=== PATIENT | male | born 1935 | race Caucasian/White ===

== ENCOUNTER 2018-12-01 06:06 | Day surgery (SDC) | payer MEDICARE ==
[~2018-12-01] VITALS: Ht 154.9 cm; Wt 114.0 kg
[~2018-12-01 06:06] MED LIST: (None)20 M1 PO; AMLO10 PO; AMOCLA875 PO; AMOX1XR PO; ASPI81EC PO; ATEN25 PO; BENA10 PO; BENA20 PO; Bupropion Xl150 MG PO; DARIFENACIN ER15 MG PO; DOXA4 PO; ERGO400 PO; Enablex15 MG PO; FURO20 PO; HYDCHL12.5 PO; HYDCHL25 PO; L-THYROXINE PO; LEVSOD75 PO; LORA10ER PO; MULVITMINF PO; Norco 5-325 Ta1 EACH PO; OXYACE5T PO; OXYB5ER PO; POTA10T; PRAV40 PO; RXOXYACE PO; SPIHYD PO; VERA240ERB PO; Zithromax250 MG PO
[2018-12-01] MEDS ORDERED: HYDCHL25 PO (13:23)
[2018-12-01] MEDS ORDERED: POTCHL20ER PO (13:23)
[2018-12-01] MEDS ORDERED: Toprol Xl25 MG PO (13:23)
[2018-12-01] MEDS ORDERED: ESCI10 PO (13:24)
--- NOTE | 2018-12-01 18:41 | NUR ---
END OF SHIFT; PT ARRIVED FROM [facility]ART [facility]ENTER AT 1330 TODAY. HE HAD BEEN RECOVERED IN THE HEART CENTER WHILE WAITING FOR ROOM IN PCU. TR BAND WAS DEFLATED AND PT HAD ARMBOARD IN PLACE. NO BLEEDING NOTED FROM TR BAND SITE. BAND WAS REMOVED AND OPSITE PLACED OVER WRIST. PT DENIES ANY PAIN OR DISCOOMFORT. PER REPORT PATIENT HAD A STENT TO RCA AND IN THE FIRST DIAG OFF THE LAD 2ND STENT. HE TRANSFERS TO THE BED WITHOUT DIFF USING CANE. HE IS AO X 4 AND HAS PLEASANT AFFECT. CONTINUES TO REMAIN PAIN FREE THROUGHOUT DAY. PER HE IS AN OBS PATIENT. WILL CONTINUE TO MONITOR THIS PATIENT UNTIL REPORT AND HAND OFF TO NOC SHIFT RN.
[2018-12-02 04:34] LABS: Anion Gap 7 mmol/L (6-16); Blood Urea Nitrogen 14 mg/dL (8-24); Bun/Creatinine Ratio 17.5 (12.0-20.0); CO2, Blood 28 mmol/L (21-32); Calcium, Blood 8.6 mg/dL (8.5-10.1); Chloride, Blood 104 mmol/L (98-108); Cholesterol 187 mg/dL (50-200); Glomerular Filtration Rate >60 (60-); Glucose, Blood 106 mg/dL (70-99); Potassium, Blood 3.9 mmol/L (3.5-5.5); Sodium, Blood 139 mmol/L (136-145); Triglycerides 272 mg/dL (30-160)
--- NOTE | 2018-12-02 04:53 | NUR ---
SHIFT SUMMARY PT A&O X4. VSS. R RADIAL ACCESS SITE WNL, NO BLEEDINING, NO HEMATOMA. ARM IMMOBILIZER IN PLACE TO R ARM. MONITOR SHOWS SB/NSR, HR 50-70. SPO2 > 92% ON CPAP WHILE SLEEPING T/O SHIFT, OTHERWISE SPO2 > 92% ON RA WHILE AWAKE. PT SBA W/ CANE INTO BATHROOM. PT ANTICIPATING DISCHARGE HOME IN MORNING. WILL CONTINUE TO MONITOR AND PROVIDE CARE UNTIL REPORT OFF TO DAY SHIFT RN.
--- NOTE | 2018-12-02 08:45 | NUR ---
PT PLEASANT COOP A/O. HOPING TO GO HOME [place]. DENIES PAIN, DENIES CHEST PAIN OR PRESSURE, RT RADIAL SITE LIGHT REDNESS, CDI. NO BLEEDING NOTED. NO HEMATOMA OR SWELLING NOTED. ARM BOARD IN PLACE. H/R REG, NO MURMER NOTED. PER TELE: NSR AT 67. LUNGS CLEAR, RESP EASY, UNLABORED. ON R/A. BT X4 LAST BM YEST. VOIDS PER URINAL. SBA WITH CANE 4 PRONG. BED IN LOW POSITION, CALL LITE IN REACH, CALLS APPROP
[2018-12-02] MEDS ORDERED: CLOP75 PO (10:26)
[2018-12-02] MEDS ORDERED: ATORVASTATIN CA80 MG PO (10:26)
[2018-12-02] MEDS ORDERED: ASPI81CH PO (10:27)
--- NOTE | 2018-12-02 11:00 | NUR ---
DISCHARGE REVIEWED WITH PT. REVIEWED MEDS, APPOINTMENTS, FOLLOWUP AND INSTRUCTIONS. PT VERBALIZED UNDERSTANDING. TLE REMOVED. PT TO DRESS. MEDS CALLED IN TO PHARMACY .
--- NOTE | 2018-12-02 11:37 | NUR ---
IV PULLED INTACT. FAMILY ON WAY TO TAKE PT HOME.
--- NOTE | 2018-12-02 12:06 | NUR ---
1145, FAMILY HERE, WHEELED TO DOOR BY JERRY ORLANDO
== END 2018-12-02 11:45 | disposition home or self-care (01) ==
LOC: MHTC 06:06 → PCU 13:21 → MHTC 12-02 11:45
PROVIDERS: Internal Medicine Interventional Cardiology
PROC: 027035Z Dilation of Coronary Artery, One Artery with Two Drug-eluting Intraluminal Devices, Percutaneous Approach (ICD-10-PCS; principal; 2018-12-01)
PROC: B2111ZZ Fluoroscopy of Multiple Coronary Arteries using Low Osmolar Contrast (ICD-10-PCS; principal; 2018-12-01)
DX: I25.119 Atherosclerotic heart disease of native coronary artery with unspecified angina pectoris (principal); E66.9 Obesity, unspecified; I42.9 Cardiomyopathy, unspecified; I10 Essential (primary) hypertension; G47.33 Obstructive sleep apnea (adult) (pediatric); Z86.13 Personal history of malaria; M19.90 Unspecified osteoarthritis, unspecified site; Z90.49 Acquired absence of other specified parts of digestive tract; Z96.652 Presence of left artificial knee joint; Z89.611 Acquired absence of right leg above knee; Z79.899 Other long term (current) drug therapy; Z88.6 Allergy status to analgesic agent; Z68.42 Body mass index [BMI] 45.0-49.9, adult
CPT/HCPCS: 36415; 80048; 82465; 83036; 84478; 93454; 94762; 99152; 99153; C1725; C1769; C1874; C1887; C1894; C9600; J1644; J2250; J3010; J3246; J7030; Q9967

== ENCOUNTER → 2019-11-21 | Outpatient (CLI) | payer MEDICARE ==
[~2019-11-21] MED LIST changes: +ASPI81CH PO; +ATORVASTATIN CA80 MG PO; +CLOP75 PO; +ESCI10 PO; +POTCHL20ER PO; +Toprol Xl25 MG PO
[2019-11-21 15:50] LABS: Creatinine, Urine Random 65.2 mg/dL (27.00-270.00)
[2019-11-21 15:53] LABS: Microalb/Creat Ratio UR, Rand 34.049 mg/g (0.000-30.000); Microalbumin, Random Urine 22.2 mg/L (0.000-20.000)
== END | disposition home or self-care (01) ==
LOC: LAB SHORT 09:30 → LAB 09:30 → LAB FUT 05-21 14:30
PROVIDERS: Family Medicine
DX: I10 Essential (primary) hypertension (principal); E78.1 Pure hyperglyceridemia; E11.9 Type 2 diabetes mellitus without complications; E03.9 Hypothyroidism, unspecified
CPT/HCPCS: 82043; 82570

== ENCOUNTER → 2020-09-15 | Outpatient (CLI) | payer OTHER ==
[2020-09-15 13:36] LABS: BASOPHILS ABSOLUTE AUTO 0.03 K/mm3 (0.00-0.23); BASOPHILS PERCENT AUTO 0 % (0-2); EOSINOPHILS ABSOLUTE AUTO 0.29 K/mm3 (0.00-0.68); EOSINOPHILS PERCENT AUTO 3 % (0-6); Hematocrit 39.8 % (37.0-53.0); Hemoglobin 13.3 g/dL (13.5-17.5); IMMATURE GRAN ABSOLUTE AUTO 0.03 K/mm3 (0.00-0.10); IMMATURE GRAN PERCENT AUTO 0 % (0-1); LYMPHOCYTES ABSOLUTE AUTO 1.66 K/mm3 (0.84-5.20); LYMPHOCYTES PERCENT AUTO 18 % (21-46); MONOCYTES ABSOLUTE AUTO 0.74 K/mm3 (0.16-1.47); MONOCYTES PERCENT AUTO 8 % (4-13); Mean Corpuscular HGB 31.9 pg (26.0-34.0); Mean Corpuscular HGB Conc 33.4 g/dL (31.5-36.5); Mean Corpuscular Volume 95 fL (80-100); Mean Platelet Volume 9.4 fL (9.1-12.4); NEUTROPHILS ABSOLUTE AUTO 6.26 K/mm3 (1.96-9.15); NEUTROPHILS PERCENT AUTO 70 % (41-73); Platelet Count 251 K/mm3 (150-400); RDW Coefficient Variation 14.2 % (11.7-14.2); RDW Standard Deviation 49.8 fL (35.1-46.3); Red Blood Cell Count 4.17 M/mm3 (4.30-5.90); White Blood Cell Count 9.01 K/mm3 (4.00-11.30)
[2020-09-15 14:50] LABS: Prothrombin Time Results 10.8 Sec (9.7-11.5)
== END | disposition home or self-care (01) ==
LOC: LAB SHORT 13:30 → LAB 13:30
PROVIDERS: Family Medicine
DX: R04.0 Epistaxis (principal)
CPT/HCPCS: 85025; 85610; 85730

== ENCOUNTER 2020-12-09 14:58 | Emergency (ER) | payer OTHER ==
[~2020-12-09] VITALS: Ht 157.5 cm; Wt 108.0 kg
== END 2020-12-09 19:14 | disposition home or self-care (01) ==
LOC: ER 14:58
DX: S83.92XA Sprain of unspecified site of left knee, initial encounter (principal); S20.212A Contusion of left front wall of thorax, initial encounter; S70.02XA Contusion of left hip, initial encounter; I10 Essential (primary) hypertension; Z79.82 Long term (current) use of aspirin; Z79.899 Other long term (current) drug therapy; W10.9XXA Fall (on) (from) unspecified stairs and steps, initial encounter
CPT/HCPCS: 71101; 73502; 73562-LT; 96372; 99283-25; J1885

== ENCOUNTER 2021-07-15 10:41 | Observation (INO) | payer MEDICARE ==
[~2021-07-15] VITALS: Ht 157.5 cm; Wt 108.0 kg
[~2021-07-15 10:41] MED LIST changes: -ERGO400 PO; -POTA10T; +POTA10T PO; +THERA-D2000 UNIT PO
[2021-07-15 11:06] LABS: BASOPHILS ABSOLUTE AUTO 0.03 K/mm3 (0.00-0.23); BASOPHILS PERCENT AUTO 0 % (0-2); EOSINOPHILS ABSOLUTE AUTO 0.15 K/mm3 (0.00-0.68); EOSINOPHILS PERCENT AUTO 1 % (0-6); Hematocrit 40.4 % (37.0-53.0); Hemoglobin 13.5 g/dL (13.5-17.5); IMMATURE GRAN ABSOLUTE AUTO 0.05 K/mm3 (0.00-0.10); IMMATURE GRAN PERCENT AUTO 1 % (0-1); LYMPHOCYTES ABSOLUTE AUTO 2.08 K/mm3 (0.84-5.20); LYMPHOCYTES PERCENT AUTO 20 % (21-46); MONOCYTES ABSOLUTE AUTO 0.76 K/mm3 (0.16-1.47); MONOCYTES PERCENT AUTO 7 % (4-13); Mean Corpuscular HGB 32.9 pg (26.0-34.0); Mean Corpuscular HGB Conc 33.4 g/dL (31.5-36.5); Mean Corpuscular Volume 99 fL (80-100); Mean Platelet Volume 9.7 fL (9.1-12.4); NEUTROPHILS ABSOLUTE AUTO 7.46 K/mm3 (1.96-9.15); NEUTROPHILS PERCENT AUTO 71 % (41-73); Platelet Count 225 K/mm3 (150-400); RDW Coefficient Variation 13.6 % (11.7-14.2); RDW Standard Deviation 49.2 fL (35.1-46.3); White Blood Cell Count 10.53 K/mm3 (4.00-11.30)
[2021-07-15 11:26] LABS: Alanine Aminotransfer (ALT/SGP 86 U/L (12-78); Albumin, Blood 3.3 g/dL (3.4-5.0); Albumin/Globulin Ratio 0.8 (0.8-1.8); Alk Phos 155 U/L (50-136); Anion Gap 7 mmol/L (6-16); Aspartate Aminotrans (AST/SGOT 67 U/L (12-37); Blood Urea Nitrogen 29 mg/dL (8-24); Bun/Creatinine Ratio 32.2 (12.0-20.0); CO2, Blood 28 mmol/L (21-32); Calcium, Blood 9.1 mg/dL (8.5-10.1); Chloride, Blood 105 mmol/L (98-108); Globulin, Blood 3.9 g/dL (2.2-4.0); Glomerular Filtration Rate >60 (60-); Glucose, Blood 136 mg/dL (70-99); Potassium, Blood 3.2 mmol/L (3.5-5.5); Sodium, Blood 140 mmol/L (136-145); Total Protein, Blood 7.2 g/dL (6.4-8.2)
--- NOTE | 2021-07-15 17:00 | NUR ---
PT ADMITTED TO ROOM 363 FROM ED AND SETTLED IN TO ROOM AND ORIENTED TO CALL BUTTON.
--- NOTE | 2021-07-15 19:22 | NUR ---
SHIFT SUMMARY PT TO HAVE RESTING PORTION OF STRESS TEST TOMORROW AT 0930. BREAKFAST TO BE HELD AND GIVEN AFTER INJECTION. REPORTED TO NOC SHIFT. PT SITTING UP ON SIDE OF BED EATING SUPPER. AWARE OF PLANS AND RESTRICTIONS FOR TOMORROW. HAS HAD NO CHEST PAIN SINCE ARRIVAL.
[2021-07-15] MEDS ORDERED: HYDCHL25 PO (19:47)
[2021-07-15] MEDS ORDERED: POTCHL20ER PO (19:48)
[2021-07-15] MEDS ORDERED: AZELASTINE205.5 MCG1 (19:49)
[2021-07-15] MEDS ORDERED: BUPR150ER PO (19:50)
[2021-07-15] MEDS ORDERED: LEVSOD75 PO (19:50)
[2021-07-15] MEDS ORDERED: ASPI325EC PO (19:55)
[2021-07-15] MEDS ORDERED: CLOP75 PO (19:57)
[2021-07-15] MEDS ORDERED: Cyclobenzaprine5 MG PO (19:57)
[2021-07-15] MEDS ORDERED: FEROSUL325 M1 PO (19:58)
[2021-07-15] MEDS ORDERED: DOCU100 PO (20:04)
[2021-07-15] MEDS ORDERED: MYRBETRIQ25 MG PO (20:06)
[2021-07-15] MEDS ORDERED: IPRATROPIUM BRO15 ML (20:06)
[2021-07-15] MEDS ORDERED: METF500 PO (20:06)
[2021-07-15] MEDS ORDERED: ASCO500 PO (20:07)
--- NOTE | 2021-07-16 04:19 | NUR ---
SHIFT SUMMARY PATIENT ALERT AND ORIENTED PLEASANT C/O CONSTIPATION AND REQUESTED PRUNE JUICE WORKS WELL WITH HIM PRUNE JUICE GIVEN RESULTS PENDING ABD SOFT WITH HYPO BOWEL SOUNDS LOWER QUADS PO FLUIDS ENCOURAGE.NO CAFFEINE FROM LAST NIGHT 8PM PT GOING FOR STRESS TEST THIS MORNING.STANDBY ASSIST X1 WITH TRANSFERS TO THE BATHROOM.HOME CPAP ON WHOLE NIGHT TELE RUNNING SINUS RHYTHM HR 60
[2021-07-16 09:15] LABS: Albumin, Blood 3.1 g/dL (3.4-5.0); Anion Gap 4 mmol/L (6-16); Blood Urea Nitrogen 24 mg/dL (8-24); Bun/Creatinine Ratio 27.1 (12.0-20.0); CO2, Blood 29 mmol/L (21-32); Calcium, Blood 8.3 mg/dL (8.5-10.1); Chloride, Blood 106 mmol/L (98-108); Creatinine, Blood 0.89 mg/dL (0.60-1.20); Glomerular Filtration Rate >60 (60-); Glucose, Blood 121 mg/dL (70-99); Potassium, Blood 3.4 mmol/L (3.5-5.5); Sodium, Blood 139 mmol/L (136-145)
--- NOTE | 2021-07-16 15:00 | NUR ---
PT WITH CARDIOLOGY CONSULT THAT WAS CALLED IN TO OFFICE TODAY WITH DR. CADE COMING TO SEE PT SHORTLY AFTER CALL. PLANS FOR ANGIOGRAM WAS AFTER LUNCH. HEART CENTER HERE TO PICK PT UP APPROX. 1435 BY W/CMarilee CATHERINE COMPLETED BY HEART CENTER STAFF. REPORT CALLED TO LIZ CALLOWAY IN PCU FOR PT TRANSFER TO PCU3. WILL NOTIFY OF ANA.
--- NOTE | 2021-07-16 15:25 | NUR ---
RAPID BEDSIDE COVID TEST PERFORMED. LOT # [id number]. EXP DATE 11/10/21. RESULT: NEGATIVE.
--- NOTE | 2021-07-16 18:04 | NUR ---
ARRIVED AT ON THE MEDICAL UNIT AT 7AM. PT LOOKS COMFORTABLE SITTING UP IN BED WATHCING TV. PT ALERT AND ORIENTED X4. APPEARS WELL NORISHED, WELL GROOMED, AND APPROPRIATE AGE AND GENDER. APPROPRIATE AFFECT, PLEASENT MOOD, TELLING JOKES. PT DENIES ANY PAIN OR DISCOMFORT. BREAKFAST FOOD TRAY WAS HELD UNTIL AFTER NUCLEAR MEDICINE CAME AND ADMINISTERED DYE VIA HIS IV AT 9:30 AM FOR A REST TEST SCHEDULED AT 10:30 AM. HE WAS NOT INTERESTED IN MOST OF THE FOOD ON HIS BREAKFAST TRAY BUT MANAGED TO EAT A SANDWHICH AND JUICE. HE WAS PLACED ON NPO AND SCHEDUALED FOR ANGIOGRAPH. THE PTS RT RADIAL ARTERY WAS THE SITE OF INSERTION, SITE CLEAN DRY AND INTACT NO HEMATOMA. THERE WERE NO IMMEDIATE INDICATIONS FOR FURTHER INVESTIGATION OR TREATMENT AT THE TIME OF THE TEST. PATIENT WAS TRANSFERED TO THE PCU. VITALS STABLE.
--- NOTE | 2021-07-16 18:36 | NUR ---
ARRIVAL TO UNIT PT TRANSFERED FROM MEDICAL FLOOR POST ANGIO AT 1623. TR BAND IN PLACE. VSS SINCE ARRIVAL TO UNIT WITH O2 SATS >93% ON RA. RIGHT RADIAL SITE C/D/I AND NO SWELLING NOTED. NO REPORT OF CHEST PAIN/PRESSURE SINCE ARRIVAL TO UNIT. NO DYSPNEA/SOB REPORTED SINCE ARRIVAL TO UNIT. BED IN LOWEST POSITION,M CALL LIGHT WITHIN REACH.
--- NOTE | 2021-07-17 06:16 | NUR ---
SHIFT SUMMARY No acute events overnight. Home CPAP in place while sleeping. Cardiac rhythm Sinus Rhythm/Sinus Bradycardia. Rate drops into low 50s while sleeping. TR band successfully removed from right radial site with no complications. Education provdied on limitations for use of wrist over the next 48 hours: 1) no heavy lifting, pushing or pulling with that extremity, 2) may shower, avoid submerging in water, 3) may remove dressing after 24 hours, 4) apply bandaid for 12 hours if any noted oozing at site after removal of dressing. Additional instructions to be provided at discharge.
--- NOTE | 2021-07-17 12:56 | NUR ---
Per chart review with Dr. Bass, patient appropriate for discharge home. I went to visit the patient in his [facility] inpatient room. He was sitting up just finishing lunch, alert and pleasant. Patient states he lives with his , who helps with ADLs and transportation if needed. Although, the patient is mostly independent. He states he does have a walker and cane in his home. No needs anticipated upon discharge, patient feels safe to return home. I scheduled a hospital follow-up with Jay Cintron on Wednesday, July 21, 2021 at 04:20 PM. Discuss the importance of attending this appointment. Patient in agreement with discharge plan, denies barriers to return home. Patient's to be contacted by [facility] 03 nurse to discuss discharge instructions and transportation time.
[2021-07-17] MEDS ORDERED: MIRALAX1711 PO (14:16)
--- NOTE | 2021-07-17 15:12 | NUR ---
DISCHARGE UPDATE PT DISCHARGE PACKET GONE OVER WITH PT AND PT AT 1455. PT LEFT UNIT AT 1510 VIA WHEELCHAIR AND ON RA. PT PERSONAL CPAP MACHINE IN IT'S CARRYING CASE AND WITH DURING DISCHARGE. PT PERSONAL BELONGINGS IN BAG AND WITH PT DURING DISCHARGE. PT ABLE TO TRANSFER SELF TO AND FROM WHEELCHAIR.
== END 2021-07-17 14:30 | disposition home or self-care (01) ==
LOC: ER 10:41 → MEDS 10:42 → PCU 07-16 15:37
PROVIDERS: Emergency Medicine; ADMIT Family Medicine
DX: I25.10 Atherosclerotic heart disease of native coronary artery without angina pectoris (principal); I11.0 Hypertensive heart disease with heart failure; I50.30 Unspecified diastolic (congestive) heart failure; E11.9 Type 2 diabetes mellitus without complications; E78.5 Hyperlipidemia, unspecified; E87.6 Hypokalemia; Z95.5 Presence of coronary angioplasty implant and graft
CPT/HCPCS: 36415; 71045; 76937; 78452; 80053; 80069; 84484; 85025; 93005; 93010; 93017; 93306; 93454; 94762; 99152; 99153; 99285-25; A9270; A9500; C1769; C1887; C1894; J0280; J1644; J1650; J2250; J2785; J3010; J7030; J7050; Q9967

== ENCOUNTER → 2022-01-29 | Outpatient (CLI) | payer MEDICARE ==
[~2022-01-29] MED LIST changes: +ASCO500 PO; +ASPI325EC PO; +AZELASTINE205.5 MCG1; +BUPR150ER PO; +Cyclobenzaprine5 MG PO; +DOCU100 PO; +FEROSUL325 M1 PO; +IPRATROPIUM BRO15 ML; +METF500 PO; +MIRALAX1711 PO; +MYRBETRIQ25 MG PO
[2022-01-29 19:04] LABS: BASOPHILS ABSOLUTE AUTO 0.03 K/mm3 (0.00-0.23); BASOPHILS PERCENT AUTO 0 % (0-2); EOSINOPHILS ABSOLUTE AUTO 0.31 K/mm3 (0.00-0.68); EOSINOPHILS PERCENT AUTO 4 % (0-6); Hematocrit 38.1 % (37.0-53.0); Hemoglobin 13.1 g/dL (13.5-17.5); IMMATURE GRAN ABSOLUTE AUTO 0.02 K/mm3 (0.00-0.10); IMMATURE GRAN PERCENT AUTO 0 % (0-1); LYMPHOCYTES ABSOLUTE AUTO 1.99 K/mm3 (0.84-5.20); LYMPHOCYTES PERCENT AUTO 25 % (21-46); MONOCYTES ABSOLUTE AUTO 0.82 K/mm3 (0.16-1.47); MONOCYTES PERCENT AUTO 11 % (4-13); Mean Corpuscular HGB 34.5 pg (26.0-34.0); Mean Corpuscular HGB Conc 34.4 g/dL (31.5-36.5); Mean Corpuscular Volume 100 fL (80-100); Mean Platelet Volume 9.5 fL (9.1-12.4); NEUTROPHILS ABSOLUTE AUTO 4.67 K/mm3 (1.96-9.15); NEUTROPHILS PERCENT AUTO 59 % (41-73); Platelet Count 209 K/mm3 (150-400); RDW Coefficient Variation 13.9 % (11.7-14.2); RDW Standard Deviation 51.8 fL (35.1-46.3); White Blood Cell Count 7.84 K/mm3 (4.00-11.30)
[2022-01-29 19:37] LABS: Albumin, Blood 3.3 g/dL (3.4-5.0); Bilirubin, Total 0.7 mg/dL (0.1-1.0); Bun/Creatinine Ratio 28.4 (12.0-20.0); Calcium, Blood 8.8 mg/dL (8.5-10.1); Creatinine, Blood 0.99 mg/dL (0.60-1.20); Globulin, Blood 3.3 g/dL (2.2-4.0); Potassium, Blood 4.1 mmol/L (3.5-5.5); Total Protein, Blood 6.6 g/dL (6.4-8.2)
== END | disposition home or self-care (01) ==
LOC: LAB SHORT 18:57 → LAB 18:57
PROVIDERS: Physician Assistant
DX: R26.9 Unspecified abnormalities of gait and mobility (principal)
CPT/HCPCS: 80053; 85025

== ENCOUNTER 2023-12-05 20:24 | Emergency (ER) | payer MEDICARE ==
[~2023-12-05] VITALS: Ht 157.5 cm; Wt 104.3 kg
[2023-12-05 20:37] VITALS: BP 141/75
== END 2023-12-05 22:41 | disposition home or self-care (01) ==
LOC: ER 20:24
DX: S61.412A Laceration without foreign body of left hand, initial encounter (principal); S61.411A Laceration without foreign body of right hand, initial encounter; M51.36 Other intervertebral disc degeneration, lumbar region; M47.816 Spondylosis without myelopathy or radiculopathy, lumbar region; M41.86 Other forms of scoliosis, lumbar region; W18.30XA Fall on same level, unspecified, initial encounter; I10 Essential (primary) hypertension; Z79.84 Long term (current) use of oral hypoglycemic drugs; Z79.82 Long term (current) use of aspirin; Z79.02 Long term (current) use of antithrombotics/antiplatelets; Z79.899 Other long term (current) drug therapy
CPT/HCPCS: 72070; 72100; 99284-25

== ENCOUNTER 2025-05-15 17:44 | Emergency (ER) | payer OTHER, MEDICARE ==
[~2025-05-15] VITALS: Ht 175.3 cm; Wt 99.8 kg
[2025-05-15 18:14] LABS: BASOPHILS ABSOLUTE AUTO 0.03 K/mm3 (0.00-0.23); BASOPHILS PERCENT AUTO 0 % (0-2); EOSINOPHILS ABSOLUTE AUTO 0.28 K/mm3 (0.00-0.68); EOSINOPHILS PERCENT AUTO 3 % (0-6); Hematocrit 39.2 % (37.0-53.0); Hemoglobin 13.3 g/dL (13.5-17.5); IMMATURE GRAN ABSOLUTE AUTO 0.06 K/mm3 (0.00-0.10); IMMATURE GRAN PERCENT AUTO 1 % (0-1); LYMPHOCYTES ABSOLUTE AUTO 3.85 K/mm3 (0.84-5.20); LYMPHOCYTES PERCENT AUTO 35 % (21-46); MONOCYTES ABSOLUTE AUTO 0.79 K/mm3 (0.16-1.47); MONOCYTES PERCENT AUTO 7 % (4-13); Mean Corpuscular HGB Conc 33.9 g/dL (31.5-36.5); Mean Corpuscular Volume 99 fL (80-100); NEUTROPHILS ABSOLUTE AUTO 5.95 K/mm3 (1.96-9.15); NEUTROPHILS PERCENT AUTO 54 % (41-73); NRBC ABSOLUTE 0.00 K/mm3 (0.00-0.02); NRBC Auto 0.0 /100 WBC (0.0-0.2); Platelet Count 241 K/mm3 (150-400); RDW Coefficient Variation 13.1 % (11.7-14.2); RDW Standard Deviation 48.1 fL (35.1-46.3)
[2025-05-15 18:30] LABS: Prothrombin Time Results 11.2 Sec (9.7-11.5)
[2025-05-15 18:54] LABS: Alanine Aminotransfer (ALT/SGP 80 U/L (12-78); Albumin, Blood 3.4 g/dL (3.4-5.0); Albumin/Globulin Ratio 1.0 (0.8-1.8); Anion Gap 12 mmol/L (3-11); Aspartate Aminotrans (AST/SGOT 95 U/L (12-37); Bilirubin, Total 1.0 mg/dL (0.1-1.0); Blood Urea Nitrogen 23 mg/dL (8-24); CO2, Blood 29 mmol/L (21-32); Calcium, Blood 8.8 mg/dL (8.5-10.1); Chloride, Blood 102 mmol/L (98-108); Creatinine, Blood 0.93 mg/dL (0.60-1.20); Ethanol (Alcohol), Blood, Med <3 mg/dL; Globulin, Blood 3.4 g/dL (2.2-4.0); Glucose, Blood 186 mg/dL (70-99); Potassium, Blood 3.6 mmol/L (3.5-5.5); Sodium, Blood 139 mmol/L (136-145); Total Protein, Blood 6.8 g/dL (6.4-8.2)
[2025-05-15 18:56] VITALS: BP 128/70
[2025-05-15] MEDS ORDERED: HYDROCODONE-AC1 EA10 PO (20:01)
[2025-05-15] MEDS ORDERED: RX Prepack 6 Tabs Oxycodone 5mg UD ONE (20:25)
[2025-05-15] MEDS ORDERED: Morphine Sulfate 4 MG/1 ML Injection IV ONE (20:25)
== END 2025-05-15 21:38 | disposition home or self-care (01) ==
LOC: ER 17:44
PROVIDERS: Emergency Medicine
DX: S22.43XA Multiple fractures of ribs, bilateral, initial encounter for closed fracture (principal); S61.411A Laceration without foreign body of right hand, initial encounter; M25.552 Pain in left hip; I10 Essential (primary) hypertension; N40.0 Benign prostatic hyperplasia without lower urinary tract symptoms; Z96.653 Presence of artificial knee joint, bilateral; Z79.890 Hormone replacement therapy; Z79.82 Long term (current) use of aspirin; Z79.02 Long term (current) use of antithrombotics/antiplatelets; Z79.84 Long term (current) use of oral hypoglycemic drugs; Z79.899 Other long term (current) drug therapy; V43.52XA Car driver injured in collision with other type car in traffic accident, initial encounter
CPT/HCPCS: 36415; 70450; 71260; 72125; 73120; 73562-LT; 74177; 80053; 80320; 83690; 84484; 85025; 85610; 96374-59; A9270; J2270; L0160; Q9967